=== PATIENT | female | born 1950 | race Caucasian/White ===

== ENCOUNTER → 2016-11-24 | Day surgery (SDC) | payer MEDICARE ==
[2016-11-19 08:43] VITALS: BMI 27.6
[~2016-11-24] MED LIST: ALPRAZolam 0.25 MG TAB PO PRN; ALPRAZolam 0.5 MG TAB PO PRN; ASPIRIN 325 MG TAB PO STA; ATORVASTATIN 80 MG TAB PO STA; IODIXANOL 320 MG/ML 100 ML INTRAARTER ONE; LIDOCAINE 2% INJ 20 MG/ML SQ ONE; MIDAZOLAM 2 MG/2 ML VIAL IVP ONE; NITROGLYCERIN SL TABS 0.4 MG TAB SUBLINGUAL PRN; RX INFO: IV CONTRAST WAS GIVEN 1 EACH MISC MISCELLANE PRN; SODIUM CHLORIDE 0.9% 1,000 ML IV ONE; SODIUM CHLORIDE 0.9% 1,000 ML IV SCH; SODIUM CHLORIDE 0.9% 1,000 ML in EMPTY BAG 1 BAG IV ONE; SODIUM CHLORIDE 0.9% 250 ML IV ONE
[2016-11-24 06:56] VITALS: PULSE 51; TEMP 98.1
--- NOTE | 2016-11-24 08:24 | CC ---
DATE OF SERVICE: INDICATIONS: Abnormal stress test. PROCEDURE NOTE: After obtaining informed consent, left heart catheterization and coronary angiogram were performed via the right femoral artery using standard Gaye catheters. Patient tolerated the procedure well without any obvious immediate complications. A femoral angiogram was performed and Angio-Seal was deployed for hemostasis. Patient had elevated creatinine prior to admission. We hydrated her both at home and prior to cardiac cath and I will continue to hydrate her this morning. I will recheck the lytes, BUN, creatinine, as outpatient. FINDINGS: HEMODYNAMICS: Left ventricular end-diastolic pressure is 14 mm. There is no significant gradient across the aortic valve. LEFT VENTRICULOGRAM: Left ventriculogram was not performed. ANGIOGRAPHIC DATA: LEFT MAIN CORONARY ARTERY: Left main coronary artery short vessel and is free of significant stenosis. It divides into left anterior descending coronary artery and circumflex coronary artery. LEFT ANTERIOR DESCENDING CORONARY ARTERY: LAD and its branches, circumflex coronary artery and its branches are free of significant stenosis. RIGHT CORONARY ARTERY: Right coronary artery is a large dominant vessel and is free of significant disease. CONCLUSIONS: 1. Mild nonobstructive coronary artery disease involving the left anterior descending artery. 2. Normal left ventricular end-diastolic pressures. 3. False positive stress test.
[2016-11-24 10:29] VITALS: RESP 20
[2016-11-24 14:49] VITALS: BP 137/64
== END ==
LOC: CATHCVL 05:58
PROVIDERS: ATTEND Internal Medicine Cardiovascular Disease
DX: I25.10 Atherosclerotic heart disease of native coronary artery without angina pectoris (principal); R94.39 Abnormal result of other cardiovascular function study; R07.2 Precordial pain; K21.9 Gastro-esophageal reflux disease without esophagitis; F17.210 Nicotine dependence, cigarettes, uncomplicated; Z82.49 Family history of ischemic heart disease and other diseases of the circulatory system; Z79.82 Long term (current) use of aspirin; Z79.899 Other long term (current) drug therapy; Z88.5 Allergy status to narcotic agent
CPT/HCPCS: 93458; C1760; C1894; C1769; J2001; J2250; Q9967

== ENCOUNTER → 2021-11-19 | Outpatient (CLI) | payer MEDICARE ==
--- NOTE | 2021-11-19 11:08 | MR ---
EXAMINATION TYPE: MR lumbar spine wo con DATE OF EXAM: 11/19/2021 COMPARISON: None HISTORY: Radiculopathy, back pain TECHNIQUE: Multiplanar, multisequence images of the lumbar spine were acquired without IV contrast. L1-L2: Normal disc appearance without desiccation. No herniation, protrusion or disc bulging. No ca nal stenosis is present. Foramina are patent bilaterally. L2-L3: Mild spinal stenosis is present due to circumferential posterior disc bulge effacing the anter ior thecal sac. Facet arthropathy with hypertrophy ligamentum flavum is noted. No significant foramin al encroachment on the right, circumferential extension endplate disc complex encroaches minimally on the inferior aspect of the foramen on the left. L3-L4: Broad-based posterior disc bulge causes anterior mass effect on the thecal sac. Circumferentia l extension of endplate disc complex causes some mild foraminal encroachment greater on the left. Fac et arthropathy with hypertrophy ligamentum flavum causes posterior lateral mass effect on the thecal sac. Only mild spinal stenosis. L4-L5: Posterior extension endplate disc bulge causes mild anterior mass effect on the thecal sac. Fa cet arthropathy with hypertrophy ligamentum flavum causes some posterior lateral mass effect on the t hecal sac, circumferential extension endplate disc complex results in some foraminal encroachment at the inferior margins greater on the right than on the left. L5-S1: Posterior extension endplate disc complex causes mild anterior mass effect on the second possi william proximal S1 nerve roots. Circumferential extension of endplate disc complex results in foraminal encroachment greater on the left than on the right. There is facet arthropathy change present. Lumbar segments are intact. No paraspinal masses are identified. Conus medullaris has a normal appe arance. No evident spinal stenosis. Lumbar vertebral bodies show preserved height and alignment. Is m ultilevel spondylosis with endplate discogenic marrow signal change. Loss of disc height signal prese nt at intervertebral levels especially L4-5, L5-S1, L2-3. There are cystic foci associated with the l eft kidney which are partially visualized and evaluated. No evident retroperitoneal adenopathy. Commo n bile duct is dilated to 12 mm. IMPRESSION: Multilevel degenerative disc disease, foraminal encroachment, facet arthropathy. Dilated common bile duct, correlate for prior cholecystectomy and follow-up as indicated, additional findings above
== END | disposition home or self-care (01) ==
LOC: RADMRIMAIN 09:01
PROVIDERS: ATTEND Family Medicine
DX: M51.16 Intervertebral disc disorders with radiculopathy, lumbar region (principal); M47.26 Other spondylosis with radiculopathy, lumbar region; K83.8 Other specified diseases of biliary tract
CPT/HCPCS: 72148

== ENCOUNTER → 2022-08-05 | Outpatient (CLI) | payer MEDICARE ==
[2022-08-05 10:59] VITALS: BP 125/84; PULSE 77; RESP 16; TEMP 98.3
--- NOTE | 2022-08-05 15:11 | P.PAINPG ---
PQRS Measure Charge Sheet Comment: HISTORY OF PRESENT ILLNESS: 71 yr old female as a referral from [facility] presents today w severe and chronic LBP secondary to DDD, spondylosis, facet arthropathy without myelopathy for evaluation. Pt states her pain level is currently at 4/10 in intensity but escalates as high as 7/10, constant, achy/stabbing in character without radiation. Pain is provoked by standing/activity for periods of 20 min or more. Palliated w PT x 6 wks in Jan 2022, heat, meds (Tylenol, Neurontin), topicals, laying supine, repositioning and rest. PMH: OA, HTN, GERD, COPD, Seasonal Allergies, Vitamin D Deficiency PSH: Denies SH: Negative x 3 FH: Noncontributory All: See list Meds: See list REVIEW OF ORGAN SYSTEMS: CONSTITUTIONAL: No fevers or chills. No recent weight loss. NEUROLOGICAL: + numbness and tingling along the distal extremities. No seizure disorders or headaches. MUSCULOSKELETAL: + pain PSYCHIATRIC: Denies current depression or suicidal thoughts. Physical Examinations : Constitutional : Cooperative , not in acute distress . Neurologic : Cranial nerve II to XII intact. No focal neurological deficits. Psychiatric : alert & oriented x 3. Matching mood & appropriate affect. Judgment & insight intact. Musculoskeletal : Cervical Spine Motor strength in the deltoid and biceps: Normal right side. Normal Left side Motor strength biceps and the wrist extensors: Normal right side . Normal left side Motor strength in the triceps muscle: Normal right side. Normal left side Deep tendon reflexes: Normal at the biceps. Normal at Brachioradialis. Normal at triceps Vertebral body tenderness to deep palpation over Cervical facet loading test: positive bilaterally Spurling test: positive bilaterally Neck distraction test: positive bilaterally Katie sign: positive bilaterally Lumbar spine Motor strength lower extremities ,thigh and legs 5/5 Right side , 5/5 Left side Deep tendon reflexes : Normal Knee Jerk. Normal Ankle Jerk Vertebral body tenderness over L5 Lumbar facet Loading Test: positive Right / positive Left Range of motion of the lumbar spine Flexion 30 degrees, extension 10 degrees Straight Leg Raise test: Left/ Right positive at degree Van test: positive right / positive left. Severe tenderness over the Sacroiliac joint on the Right / Left sides Gaenslen test: positive bilaterally Seated flexion test: positive bilaterally. Sacral spine : Severe tenderness over the Sacroiliac joint: right side / left side Range of motion: Flexion of the lumbar spine <60 degrees Range of motion: Extension of the lumbar spine <20 degrees Gaenslen's Test positive Stew's Test positive Van test: positive right side / left side Thigh Thrust Test Sacral Thrust Test Imaging: MRI without contrast of the lumbar spine from 11/19/21 reviewed Assessment/ Plan : Lumbar DDD, lumbar spondylosis Recommendation of BL TFESI L5-S1. May need a series of injections, up to 3 within a 6 mo period, for optimal pain relief. Risks, benefits of procedure discussed and patient verbalized understanding. Admits to aspirin or anti- coagulant use or medical history of diabetes. Protocol for discontinuation/ continuation of medications andrea procedure discussed. All questions answered. I have spent greater than 30 minutes on patient care today. Dr Luciano was available by phone for the evaluation of this patient. The time was used to review the medical records including relevant urine studies and Prescription history (MAPs), review of the available imaging, evaluation and examination of the patient, coordination of care with the medical staff and if applicable referring physicians, as well as creation of the medical record PQRS Narrative: Smoking Status Current every day smoker Home Medications: Ambulatory Orders Acetaminophen [Tylenol] 325 mg PO DIRECTED PRN 11/19/16 Aspirin [Adult Low Dose Aspirin EC] 81 mg PO DAILY 11/19/16 Fexofenadine HCl [Chacha Allergy] 180 mg PO DAILY PRN 11/19/16 Fluticasone Nasal [place] [Flonase Nasal [place]] 2 spr EA NOSTRIL DAILY 11/19/16 Gabapentin [Neurontin] 100 - 300 mg PO HS 11/19/16 Omeprazole 20 mg PO BID 11/19/16 Controlled Substance Measures - Controlled Substance Measures Is patient prescribed a controlled substance at discharge?: No
== END ==
LOC: PNWHC3 09:56
PROVIDERS: ATTEND Specialist
DX: M51.36 Other intervertebral disc degeneration, lumbar region (principal); M47.816 Spondylosis without myelopathy or radiculopathy, lumbar region; M19.90 Unspecified osteoarthritis, unspecified site; I10 Essential (primary) hypertension; J44.9 Chronic obstructive pulmonary disease, unspecified; Z88.0 Allergy status to penicillin; Z88.5 Allergy status to narcotic agent; F17.200 Nicotine dependence, unspecified, uncomplicated
CPT/HCPCS: 99211

== ENCOUNTER → 2022-12-14 | Outpatient (CLI) | payer MEDICARE ==
--- NOTE | 2022-12-14 11:56 | US ---
EXAMINATION TYPE: US kidneys/renal and bladder DATE OF EXAM: 12/14/2022 COMPARISON: NONE CLINICAL HISTORY: N39.0 DISORDER OF URINARY SYSTEM, UNSPECIFIED. EXAM MEASUREMENTS: Right Kidney: 9.8 x 4.0 x 4.2 cm Left Kidney: 9.1 x 3.8 x 4.4 cm Patient of large body habitus, technically difficult limited study Right Kidney: limited visualization, partially obscured by overlying bowel gas, cyst measuring 2.4 x 2.6 x 2.2cm Left Kidney: limited visualization, partially obscured by overlying bowel gas, cysts measuring 2.0 x 2.6 x 2.4cm and 3.3 x 3.8 x 3.4cm Bladder: wnl No hydronephrosis. No definitive nephrolithiasis. Bilateral renal cysts with largest on the right marcos suring up to 2.6 cm and largest on the left measuring up to 3.8 cm. Urinary bladder is anechoic. IMPRESSION: Limited examination due to patient's body habitus. 1. No hydronephrosis or nephrolithiasis. 2. Bilateral renal cysts.
== END | disposition home or self-care (01) ==
LOC: RADUSWWP 11:07
PROVIDERS: ATTEND Urology
DX: N28.1 Cyst of kidney, acquired (principal); N39.9 Disorder of urinary system, unspecified
CPT/HCPCS: 76770

== ENCOUNTER 2023-05-25 09:49 | Day surgery (SDC) | payer MEDICARE ==
[2023-05-21 10:44] VITALS: BMI 32.9
[~2023-05-25 09:49] MED LIST changes: -ALPRAZolam 0.25 MG TAB PO PRN; -ALPRAZolam 0.5 MG TAB PO PRN; -ASPIRIN 325 MG TAB PO STA; -ATORVASTATIN 80 MG TAB PO STA; -IODIXANOL 320 MG/ML 100 ML INTRAARTER ONE; +LACTATED RINGERS 1,000 ML IV SCH; -LIDOCAINE 2% INJ 20 MG/ML SQ ONE; -MIDAZOLAM 2 MG/2 ML VIAL IVP ONE; -NITROGLYCERIN SL TABS 0.4 MG TAB SUBLINGUAL PRN; -RX INFO: IV CONTRAST WAS GIVEN 1 EACH MISC MISCELLANE PRN; -SODIUM CHLORIDE 0.9% 1,000 ML IV ONE; -SODIUM CHLORIDE 0.9% 1,000 ML IV SCH; -SODIUM CHLORIDE 0.9% 1,000 ML in EMPTY BAG 1 BAG IV ONE; -SODIUM CHLORIDE 0.9% 250 ML IV ONE
[2023-05-25 10:12] VITALS: TEMP 97.5
[2023-05-25] MEDS ORDERED: IOPAMIDOL M200 10 ML VIAL ONE (10:19)
[2023-05-25] MEDS ORDERED: TRIAMCINOLONE ACETONIDE 40 MG/ML 1 ML VIAL ONE (10:19)
[2023-05-25] MEDS ORDERED: ROPIVACAINE 5 MG/ML 20 ML AMPULE ONE (10:19)
--- NOTE | 2023-05-25 10:28 | P.PCN ---
Date of Procedure: 05/25/23 Surgeon: Coby Alonso Pathology: none sent Condition: stable Disposition: PACU Description of Procedure: PREOPERATIVE DIAGNOSIS: 1-Lumbar radiculopathy 2- Lumber Degenerative Disc Diseases. POSTOPERATIVE DIAGNOSIS: 1-Lumbar radiculopathy. 2-Lumbar Degenerative Disc Diseases PROCEDURE 1. Lumbar epidural steroid injection under fluoroscopic guidance at the L5-S1 level. 2. Lumbar epidurogram. ANESTHESIA: Local only with 1% lidocaine EBL: Minimal PROCEDURE INDICATION: The patient with low back pain and radiculitis symptoms unresponsive to conservative treatment. Fluoroscopy was used to optimize visualization of the needle placement and to maximize safety. PROCEDURE DESCRIPTION / TECHNIQUE: The patient was seen and identified in the preoperative area. Risks, benefits, complications including but not limited to infections ,bleeding ,allergic reaction to the medications ,nerve damage and not complete pain relief , and alternatives were discussed with the patient. The patient agreed to proceed with the procedure and signed the consent. IV was started, and vital signs were stable. Patient was taken to the OR and time out was completed. The patient was placed in the prone position on procedure table and a pillow was placed under the abdomen to reduce lumbar lordosis. The lumbosacral area was prepped and draped in the usual sterile fashion with ChloraPrep.Patient was closely monitored during the procedure. Conscious sedation was used during the procedure to decrease patients anxiety. Vital signs were monitered during the entire procedure. Using anterior-posterior fluoroscopy, the L5-S1 interlaminar space was identified and the skin over this site was marked and then infiltrated with 1% lidocaine subcutaneously. Subsequently, a 20-gauge Tuohy epidural needle was inserted and advanced toward the epidural space using the Loss of resistance to air technique and guided by AP and lateral fluoroscopy. The correct needle position in the epidural space was verified with the injection of 1 mL of the water soluble contrast dye Omnipaque 180 contrast and observing an excellent epidurogram with the epidural spread of the dye, after negative aspiration for blood and CSF and in the absence of paresthesias. Again after negative aspiration, a 7 ml mixture containing 40 mg of Kenalog and 5 ml of preservative free Normal Saline, and 2 ml of preservative free Ropivacaine 0.5% solution was injected and a washout of epidurogram was seen. Needle was withdrawn intact, skin was cleansed, and bandages were applied. patient tolerated procedure well and was transferred to PACU in stable condition.A copy of the needle placement picture was saved to the fluoroscopy machine. COMPLICATIONS: None DISPOSITION / PLANS: The patient was placed in a supine position and transferred to the recovery area in a stable condition for observation. There was no evidence of lower extremity motor or sensory deficit after the procedure. Patient was discharged from the recovery room after meeting discharge criteria. Home discharge instructions were given to the patient by the staff. The patient was reexamined prior to discharge. The patient will schedule a follow up in the clinic in 2-4 weeks.
[2023-05-25 10:35] VITALS: RESP 16
[2023-05-25 10:49] VITALS: BP 148/70; PULSE 79
--- NOTE | 2023-05-25 10:53 | FL ---
Intraoperative/procedural fluoroscopic services were provided. Total fluoroscopy time is 7.0 seconds with a total of 2 submitted images to PACS. Please see the operative/procedural note for further deta ils. DAP: [id number]
== END 2023-05-25 11:00 | disposition home or self-care (01) ==
LOC: ORPAIN 09:49
PROVIDERS: ATTEND Anesthesiology
DX: M51.16 Intervertebral disc disorders with radiculopathy, lumbar region (principal); J44.9 Chronic obstructive pulmonary disease, unspecified; Z79.82 Long term (current) use of aspirin; Z79.51 Long term (current) use of inhaled steroids
CPT/HCPCS: 62323; J3301; Q9966; J2795